=== PATIENT | female | born 1940 | race Caucasian/White ===

== ENCOUNTER 2019-07-27 10:20 | Outpatient (CLI) | payer MEDICARE ==
--- NOTE | 2019-07-27 11:16 | MMO ---
Bilateral MAMMO Bilat Screen [facility]. CLINICAL HISTORY: Patient is 78 years old and is seen for screening. The patient has the following family history of breast cancer: mother, at age 89. The patient has no personal history of cancer. VIEWS: The views performed were: bilateral craniocaudal with tomosynthesis and bilateral mediolateral oblique with tomosynthesis. FILMS COMPARED: The present examination has been compared to prior imaging studies performed at [facility] on 01/05/2013, 03/28/2014, 05/31/2015 and 09/11/2016. This study has been interpreted with the assistance of computer-aided detection. MAMMOGRAM FINDINGS: There are scattered fibroglandular densities. There are stable benign appearing calcifications seen in both breasts. There are also vascular calcifications. There are no suspicious masses, suspicious calcifications, or new areas of architectural distortion. IMPRESSION: THERE IS NO MAMMOGRAPHIC EVIDENCE OF MALIGNANCY. A ROUTINE FOLLOW-UP MAMMOGRAM IN 1 YEAR IS RECOMMENDED. THE RESULTS OF THIS EXAM WERE SENT TO THE PATIENT. ACR BI-RADS Category 2 - Benign finding MAMMOGRAPHY NOTE: 1. A negative mammogram report should not delay a biopsy if a dominant of clinically suspicious mass is present. 2. Approximately 10% to 15% of breast cancers are not detected by mammography. 3. Adenosis and dense breasts may obscure an underlying neoplasm. Reported by: SILVANA HORTA MD Electonically Signed: [id number]
== END 2019-07-27 10:21 | disposition home or self-care (01) ==
LOC: BICMAMMO 10:20
PROVIDERS: ATTEND Family Medicine
DX: Z12.31 Encounter for screening mammogram for malignant neoplasm of breast (principal); Z80.3 Family history of malignant neoplasm of breast
CPT/HCPCS: 77063; 77067

== ENCOUNTER 2020-12-15 22:21 | Emergency (ER) | payer MEDICARE, OTHER | END 2020-12-16 00:10 | disposition home or self-care (01) | LOC: ERS 22:21 | DX: S20.211A Contusion of right front wall of thorax, initial encounter (principal); S05.11XA Contusion of eyeball and orbital tissues, right eye, initial encounter; I10 Essential (primary) hypertension; E78.00 Pure hypercholesterolemia, unspecified; Z79.899 Other long term (current) drug therapy; W01.0XXA Fall on same level from slipping, tripping and stumbling without subsequent striking against object, initial encounter | CPT/HCPCS: 70450; 71045 ==

== ENCOUNTER 2024-01-28 13:43 | Outpatient (CLI) | payer MEDICARE ==
[2024-01-28 14:54] LABS: #Basophils 0.07 10x3/uL (0.0-0.2); #Eosinphils 0.24 10x3/uL (0.0-0.5); #Monocytes 0.38 10x3/uL (0.0-1.1); %Eosinophils 3.5 % (0.0-6.0); %Lymphocytes 30.4 % (18.0-47.0); %Monocytes 5.5 % (0.0-10.0); %Neutrophils 59.3 % (40.0-75.0); Hematocrit 39.6 % (34.9-44.5); Mean Corpuscular HGB CONC 32.8 g/dL (32.0-36.0); Mean Corpuscular Hemoglobin 29.1 pg (27.0-33.0); Mean Corpuscular Volume 88.6 fL (81.6-98.3); Mean Platelet Volume 9.6 fL (7.4-10.4); Platelet Count 284 10x3/uL (150-450); Red Blood Cell (RBC) Count 4.47 10x6/uL (3.90-5.03); White Blood Cell (WBC) Count 6.9 10x3/uL (3.5-10.5)
[2024-01-28 15:19] LABS: Anion Gap 14 mmol/L (10-20); BUN (Urea Nitrogen) 14 mg/dL (9.8-20.1); Calc. Creatinine Clearance 0 mL/min (70-130); Calcium 9.8 mg/dL (7.8-10.44); Carbon Dioxide 26 mmol/L (23-31); Chloride 104 mmol/L (98-107); Estimated GFR 75; Glucose 104 mg/dL (83-110); Sodium 140 mmol/L (136-145)
== END 2024-01-28 13:44 | disposition home or self-care (01) ==
LOC: LABBT 13:43
PROVIDERS: ATTEND Orthopaedic Surgery
DX: Z01.818 Encounter for other preprocedural examination (principal); M19.111 Post-traumatic osteoarthritis, right shoulder
CPT/HCPCS: 80048; 85025; 93005; 93010

== ENCOUNTER 2024-02-05 05:51 | Observation (INO) | payer MEDICARE ==
[2024-01-28 14:14] VITALS: BMI 28.3
[2024-02-05] MEDS ORDERED: SUGAMMADEX SODIUM 200 MG/2 ML VIAL ONE (06:10)
[2024-02-05] MEDS ORDERED: Lidocaine 1% PF 5 ML VIAL ONE (06:10)
[2024-02-05] MEDS ORDERED: PROPOFOL 20 ML ONE (06:10)
[2024-02-05] MEDS ORDERED: Ondansetron PF 4 MG/2 ML Vial ONE (06:10)
[2024-02-05] MEDS ORDERED: Dexamethasone 4 mg/ml Vial ONE (06:10)
[2024-02-05] MEDS ORDERED: fentaNYL PF 100 MCG/2 ML SYRINGE ONE (06:10)
[2024-02-05] MEDS ORDERED: Rocuronium Bromide 10 MG/ML (10ML VIAL) ONE (06:10)
[2024-02-05] MEDS ORDERED: Tranexamic Acid 1,000 MG/10 ML VIAL ONE (06:13)
[2024-02-05] MEDS ORDERED: Vancomycin 1 GM/200 ML (FROZEN) BAG ONE (06:13)
[2024-02-05] MEDS ORDERED: Sodium Chloride 0.9% 100 ML ONE ×2 (06:13→06:57)
[2024-02-05] MEDS ORDERED: EPINEPHrine 1 MG/ML VIAL ONE (06:34)
[2024-02-05] MEDS ORDERED: fentaNYL 50 mcg/mL 1 mL Vial ONE (06:35)
[2024-02-05] MEDS ORDERED: Midazolam HCl 2 mg/2 ml Vial ONE (06:35)
[2024-02-05] MEDS ORDERED: Ropivacaine 0.5% HCl/PF (150 MG/30 ML VIAL) ONE (06:36)
[2024-02-05] MEDS ORDERED: Ropivacaine 0.2% HCl/PF 20 ML ONE (06:36)
[2024-02-05] MEDS ORDERED: Lidocaine 1% (PF) 30 ML VIAL ONE (06:36)
[2024-02-05] MEDS ORDERED: CEFAZOLIN 2 GM VIAL ONE (06:57)
[2024-02-05] MEDS ORDERED: fentaNYL 50 mcg/mL 1 mL Vial SLOW IVP PRN (07:08)
[2024-02-05] MEDS ORDERED: Ondansetron PF 4 MG/2 ML Vial IVP PRN ×2 (07:15→09:04)
[2024-02-05] MEDS ORDERED: Zolpidem Tartrate 5 MG TAB PO PRN ×2 (07:15→09:04)
[2024-02-05] MEDS ORDERED: Promethazine HCl 25 MG/ML VIAL IM PRN (07:15)
[2024-02-05] MEDS ORDERED: Ropivacaine 0.2% 550 ML 550 ML NERVE BLCK SCH (07:15)
[2024-02-05] MEDS ORDERED: PHENYLEPHRINE-NS 100 MCG/ML 10 ML SYRINGE ONE (07:53)
[2024-02-05] MEDS ORDERED: ePHEDrine Sulfate 50 MG/10 ML VIAL ONE (08:30)
[2024-02-05] MEDS ORDERED: Ondansetron ODT 4 MG TAB PO PRN (09:04)
[2024-02-05] MEDS ORDERED: Methocarbamol 500 MG TAB PO PRN (09:04)
[2024-02-05] MEDS ORDERED: Bisacodyl 10 MG SUPP PR PRN (09:04)
[2024-02-05] MEDS ORDERED: Milk Of Magnesia 30 ML UDCUP PO PRN (09:04)
[2024-02-05] MEDS ORDERED: diphenhydrAMINE 50 MG CAP PO PRN (09:04)
[2024-02-05] MEDS ORDERED: Promethazine HCl 25 MG/ML VIAL ONE (09:34)
[2024-02-05] MEDS ORDERED: traMADol HCl 50 MG TAB PO PRN ×2 (09:38)
[2024-02-05] MEDS ORDERED: HYDROcodone/Acetaminophen 5/325 mg Tablet PO PRN ×2 (09:39→09:45)
[2024-02-05] MEDS: Famotidine 20 MG TAB PO SCH ×2 (11:11→20:50)
[2024-02-05] MEDS: Dextrose 5 %-0.45 % NaCl 1,000 ML IV SCH (11:12)
[2024-02-05] MEDS: CEFAZOLIN 2 GM in Sodium Chloride 0.9% 100 ML IVPB SCH (16:05)
[2024-02-05] MEDS: Icosapent Ethyl 1 GM CAPSULE PO SCH (18:10)
[2024-02-05] MEDS: Acetaminophen 325 MG TAB PO PRN (18:10)
[2024-02-05] MEDS: Losartan 25 MG TAB PO SCH (20:50)
[2024-02-05] MEDS: Amitriptyline HCl 25 MG TAB PO SCH (20:50)
[2024-02-05] MEDS: Latanoprost 0.005% Ophth Soln 2.5 ml Bottle EA EYE SCH (21:51)
[2024-02-06 08:17] VITALS: BP 134/81; TEMP 98.1
[2024-02-06] MEDS: CO Q-10 CAPSULE 100 MG PO SCH (09:38)
[2024-02-06] MEDS: HYDROcodone/Acetaminophen 5/325 mg Tablet PO PRN (09:38)
== END 2024-02-06 10:42 | disposition home or self-care (01) ==
LOC: SDC 05:51 → SJJU 10:54
PROVIDERS: ADMIT Orthopaedic Surgery; ATTEND Orthopaedic Surgery
PROC: 0RRJ0JZ Replacement of Right Shoulder Joint with Synthetic Substitute, Open Approach (ICD-10-PCS; principal; 2024-02-05)
DX: M19.111 Post-traumatic osteoarthritis, right shoulder (principal); J45.909 Unspecified asthma, uncomplicated; E78.5 Hyperlipidemia, unspecified; N30.11 Interstitial cystitis (chronic) with hematuria; Z98.890 Other specified postprocedural states; Z79.899 Other long term (current) drug therapy; Z88.8 Allergy status to other drugs, medicaments and biological substances
CPT/HCPCS: 23430; 23472; 64415; 97110; 97116; 97535; A4306; C1713 ×3; C1776 ×4; J0171; J1100; J2001; J2405; J2550; J2704; J2795 ×3; J3010; J3370; J3490 ×2; J7042; J2250